=== PATIENT | female | born 1990 ===

== ENCOUNTER 2021-02-21 00:17 | Emergency (ER) | payer SELFPAY ==
[2021-02-21 01:30] LABS: Urine Blood Negative (Negative); Urine Glucose Negative (Negative); Urine Protein Negative (Negative); Urine Specific Gravity 1.025 (1.005-1.030)
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
[2021-02-21 02:25] VITALS: BP 119/68; TEMP 98.2; O2SAT 100
[2021-02-21 02:49] LABS: Urine Specific Gravity/Preg 1.025 (1.005-1.030)
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
== END 2021-02-21 02:09 | disposition home or self-care (01) ==
LOC: ER 00:17
DX: O9A.211 Injury, poisoning and certain other consequences of external causes complicating pregnancy, first trimester (principal); S39.91XA Unspecified injury of abdomen, initial encounter; O23.41 Unspecified infection of urinary tract in pregnancy, first trimester; Z3A.11 11 weeks gestation of pregnancy; V89.2XXA Person injured in unspecified motor-vehicle accident, traffic, initial encounter
CPT/HCPCS: 76815; 81003; 81025; 99284